=== PATIENT | female | born 1985 | race Asian ===

== ENCOUNTER 2023-10-03 20:51 | Inpatient (IN) ==
[2023-10-03] MEDS ORDERED: Lidocaine 1% VIAL 10 MG/ML 30 ML VIAL INJ PRN (22:47)
[2023-10-03] MEDS ORDERED: Prochlorperazine 5 mg/ml 2 ml VIAL (10 mg) IV PRN (22:47)
[2023-10-03 23:09] LABS: ABS Lymphocytes 1.8 10^3/uL (1.0-4.8); ABS Monocytes 0.4 10^3/uL (0.0-0.9); ABS Neutrophils 4.7 10^3/uL (1.5-7.6); ABS Nucleated RBC 0.01 10^3/ul; Eosinophil % 0.4 %; Hematocrit 34.3 % (35-45); Hemoglobin 11.7 g/dL (11.5-14.3); Mean Corpuscular Hemoglobin 30.7 pg (27-33); Mean Corpuscular Hgb Conc 34.3 g/dL (31-36); Mean Corpuscular Volume 89.7 fL (80-97); Nucleated Red Blood Cells % 0.1 %/100WBC (0.0-0.8); Platelet Count 221 10^3/uL (150-450); Red Blood Count 3.82 10^6/uL (3.63-4.92); Red Cell Distribution Width 13.8 % (12-17); White Blood Count 6.9 10^3/uL (3.8-11.8)
[2023-10-03 23:36] LABS: Urine Benzodiazepine Screen None Detected (None Detect); Urine Cannabinoids Screen None Detected (None Detect); Urine Opiates Screen None Detected (None Detect)
[2023-10-03] MEDS: Lactated Ringers 1000 ml BAG 1,000 ML IV SCH (23:41)
[2023-10-03] MEDS: Oxytocin in LR 20,000 MILLI.UNIT/1,000 ML BAG IV SCH (23:49)
[2023-10-04] MEDS: OBEPIDURAL (200 ML) 200 ML EPIDURAL ONE (02:53)
[2023-10-04] MEDS: Lactated Ringers 1000 ml BAG 1,000 ML IV ONE ×2 (03:01→18:35)
[2023-10-04] MEDS ORDERED: Sodium Citrate/Citric Acid LIQ 15 ML UDC PO PRN (03:02)
[2023-10-04] MEDS ORDERED: Phenylephrine 40 mcg/mL 10mL (400mcg) SYRINGE IV PUSH PRN ×2 (03:02)
[2023-10-04 04:18] LABS: Urine Appearance Clear; Urine Bilirubin Negative (Negative); Urine Blood Negative (Negative); Urine Color Colorless; Urine Glucose Negative (Negative); Urine Ketones Negative (Negative); Urine Nitrite Negative (Negative); Urine Protein Negative (Negative); Urine Specific Gravity 1.009 (1.002-1.030); Urine Urobilinogen Negative (Negative); Urine pH 6.5 (5.0-8.0)
[2023-10-04] MEDS ORDERED: Lidocaine 2% PF 10 ML AMP (OR) ONE ×2 (15:14→15:55)
[2023-10-04] MEDS ORDERED: Morphine PF AMP (0.5MG/ML) 5 MG/10 ML AMP ONE (15:32)
[2023-10-04] MEDS ORDERED: Ondansetron 4 mg VIAL 2 MG/ML 2 ml VIAL ONE (15:32)
[2023-10-04] MEDS ORDERED: Oxytocin 10 UNITS/ML 1 ML VIAL ONE (15:32)
[2023-10-04] MEDS ORDERED: Acetaminophen IV 1 GM/100ML 1,000 MG/100 ML BAG IV ONE (16:15)
[2023-10-04] MEDS ORDERED: fentaNYL 100 mcg/2 ml 50 MCG/ML VIAL ONE (16:37)
[2023-10-04] MEDS ORDERED: Midazolam 2 mg/2 ml VIAL 1 mg/ml 2 ml VIAL (2 mg) ONE (16:39)
[2023-10-04] MEDS ORDERED: Dibucaine 1% OINT 28.35 GM TUBE PR PRN (17:10)
[2023-10-04] MEDS ORDERED: Glycerin ADULT 2.4 gm SUPP PR PRN (17:10)
[2023-10-04] MEDS ORDERED: Naloxone 0.4 mg VIAL 0.4 mg/ml 1 ml VIAL IV PRN (17:13)
[2023-10-04] MEDS ORDERED: HYDROmorphone 1 MG/1 ML SYRINGE IV PRN (17:13)
[2023-10-04] MEDS ORDERED: Ondansetron 4 mg VIAL 2 MG/ML 2 ml VIAL IV PRN (17:16)
[2023-10-04] MEDS ORDERED: Metoclopramide 5 MG/ML VIAL (10 mg) IV PRN (17:16)
[2023-10-04] MEDS ORDERED: Acetaminophen IV 1 GM/100ML 1,000 MG/100 ML BAG IV PRN (17:16)
[2023-10-04] MEDS ORDERED: Naloxone 0.4 mg VIAL 0.4 mg/ml 1 ml VIAL IV PUSH PRN (17:16)
[2023-10-04] MEDS ORDERED: Lactated Ringers 1000 ml BAG 1,000 ML IV SCH (18:00)
[2023-10-04] MEDS: Lidocaine 1.5% EPI 1:200,000 30 ML SDV ONE (18:35)
[2023-10-04] MEDS: ceFOXitin 2 GM IVPREMIX 2 GM/50 ML BAG IVPB ONE (18:35)
[2023-10-04] MEDS: Buffered Lidocaine 1% SYRIN 1 ml INTRADERM ONE (18:35)
[2023-10-04] MEDS: Lactated Ringers 1000 ml BAG 1,000 ML IV SCH (18:35)
[2023-10-04] MEDS: Phenylephrine 40 mcg/mL 10mL (400mcg) SYRINGE ONE (18:35)
[2023-10-04] MEDS: OBEPIDURAL (200 ML) 200 ML EPIDURAL SCH (18:36)
[2023-10-04] MEDS: Oxytocin in LR 20,000 MILLI.UNIT/1,000 ML BAG IV SCH (22:42)
[2023-10-05 06:52] LABS: ABS Eosinophils 0.1 10^3/uL (0.0-0.5); ABS Lymphocytes 1.4 10^3/uL (1.0-4.8); ABS Monocytes 0.5 10^3/uL (0.0-0.9); ABS Neutrophils 8.3 10^3/uL (1.5-7.6); Eosinophil % 0.7 %; Hematocrit 26.4 % (35-45); Hemoglobin 9.2 g/dL (11.5-14.3); Lymphocyte % 13.6 %; Mean Corpuscular Hemoglobin 31.1 pg (27-33); Mean Platelet Volume 7.9 fL (7.5-11.2); Platelet Count 154 10^3/uL (150-450); Red Blood Count 2.97 10^6/uL (3.63-4.92); White Blood Count 10.3 10^3/uL (3.8-11.8)
[2023-10-05] MEDS: Witch Hazel PAD JAR TOPICAL PRN (07:47)
[2023-10-05] MEDS: Iron Sucrose 200 MG in NS 0.9% 100 ml BAG 100 ML IVPB ONE (12:09)
[2023-10-06] MEDS: Vitamins A & D OINT TUBE TOPICAL SCH (09:59)
[2023-10-07 09:08] VITALS: BP 110/69
== END 2023-10-07 14:08 | disposition home or self-care (01) | DRG 788 ==
LOC: MCHOBOUT 20:51 → MCHOB 22:23
PROVIDERS: ADMIT Obstetrics & Gynecology; ATTEND Obstetrics & Gynecology